=== PATIENT | female | born 1955 | race African-American/Black ===

== ENCOUNTER 2016-09-01 17:54 | Emergency (ER) | payer OTHER | END 2016-09-01 19:52 | disposition home or self-care (01) | LOC: FER 17:54 | DX: L03.012 Cellulitis of left finger (principal); I10 Essential (primary) hypertension; Z79.82 Long term (current) use of aspirin; Z79.899 Other long term (current) drug therapy | CPT/HCPCS: 86403; 87070; 87077; 87186; 87205 ==